=== PATIENT | male | born 1970 | race Caucasian/White ===

== ENCOUNTER 2022-07-09 08:39 | Day surgery (SDC) | payer OTHER, SELFPAY ==
[2022-07-09] VITALS (7 sets, daily range): BP systolic 100–155; BP diastolic 75–94; PULSE 88–100; RESP 16; TEMP 36.2–36.4; O2SAT 90–95; BMI 32.7
--- NOTE | 2022-07-09 08:59 | PCM.HP.STD ---
[facility] - General General Date of Admission: 07/09/22 Date of Service: 07/09/22 Chief Complaint: Screening colonoscopy HPI Narrative RHODA ROYAL, is a 51 M who presents today for screening colonoscopy. He has no past medical history of lower GI bleeding, constipation, diarrhea. He does not take any medicines for his bowels. He does have family history of colon cancer in his grandfather. No other GI past medical history is present. [facility] Medical History Alcohol use Diabetes Essential (primary) hypertension Former smoker Gastric reflux Hyperlipidemia Obesity Snoring Type 2 diabetes mellitus Wears glasses Home Medications amlodipine 10 mg tablet 10 mg PO DAILY 05/08/22 [History Last Taken Unknown] losartan 50 mg tablet 50 mg PO DAILY 05/08/22 [History Last Taken Unknown] metformin 1,000 mg tablet 1,000 mg PO BID 05/08/22 [History Last Taken Unknown] paroxetine HCl 20 mg tablet 20 mg PO DAILY 05/08/22 [History Last Taken Unknown] Allergy/AdvReac Type Severity Reaction Status Date / Time No Known Allergies Allergy Verified 07/07/22 11:36 Family History (Updated 05/08/22 @ 08:54 by Dedra Curry) Grandmother Colon cancer Mother Ovarian cancer Social History (Updated 05/08/22 @ 08:55 by Dedra Curry) household members: spouse current occupational status: employed current occupation: [employer] Smoking Status: Former smoker ROS Review of Systems ROS Unobtainable: other Constitutional Constitutional: Denies fatigue, fever(s), poor appetite, weight gain or weight loss ENT HEENT: Denies mouth lesions Cardiovascular Cardiovascular: Denies abdominal bloating, abdominal edema or abdominal pain Respiratory/Chest Respiratory/Chest: Denies change in mental status, change in phlegm color, chest congestion or chest tightness Gastrointestinal Gastrointestinal: Denies belching, bloating, change in bowel habits, change in stool character, chewing difficulty, coffee ground emesis, constipation, cramping, diarrhea, dyspepsia, dysphagia, early satiety, excessive flatus, fecal incontinence, heartburn, hematemesis, hematochezia, hemorrhoids, loose stools, melena, nausea, odynophagia, rectal bleeding, tenesmus, vomiting or weight changes Genitourinary Genitourinary: Denies abdominal discomfort, burning urination or itching Musculoskeletal Musculoskeletal: Reports as per HPI; Denies muscle weakness or myalgias Integumentary Integumentary: Denies jaundice Neurologic Neurologic: Denies lack of coordination or weakness Psychiatric Psychiatric: Denies confusion, depression, memory loss, mood swings, paranoia or suicidal ideation Endocrine Endocrinology: Denies systems reviewed and no addt'l complaints, except as documented Hematologic/Lymphatic Hematologic/Lymphatic: Denies anemia, easy bleeding, easy bruising or lymphadenopathy Allergic/Immunologic Allergic/Immunologic: Denies systems reviewed and no addt'l complaints, except as documented Physical Exam Const alert, oriented x3, no apparent distress, healthy appearing and well nourished General Appearance: cooperative, comfortable, well kempt and well developed Orientation / Consciousness: awake and oriented to person HEENT Head and Scalp: normocephalic and atraumatic Face and Sinus: normal facial exam Mouth: oral and palatal mucosa normal Eyes General Eye: normal appearance of both eyes Neck full ROM Lymph Lymphatic: no lymphadenopathy noted Chest inspection of chest normal Resp normal respiratory effort and no use of accessory muscles Cardio regular rate and regular rhythm GI normal to inspection, nondistended, normoactive bowel sounds, soft to palpation, non-tender, non-distended and no masses Auscultation: normoactive bowel sounds Palpation: soft Percussion: normal to percussion Rectal Exam: visual inspection normal and normal sphincter tone no CVA tenderness Back/Spine no CVA tenderness and normal ROM Extremity normal to inspection Peripheral Pulses: Yes pulses 2+ throughout Skin no rashes or lesions noted General Skin Exam: no breakdown, elasticity normal and turgor normal Neuro oriented x3 Motor Exam: strength 5/5 throughout Psych mental status grossly normal Appearance: grossly normal Attitude: calm Activity / Motor Behavior: appropriate eye contact Speech: normal speech Thought Process: normal thought process Thought Content: normal thought content Attention / Concentration: attention grossly intact Memory / Cognition: memory grossly intact Insight: insight good Judgement: judgement good Assessment & Plan Assessment/Plan (1) Encounter for screening for malignant neoplasm of colon: PLAN: He will undergo a screening colonoscopy. He was explained alternatives, risk, benefits including outstanding bleeding, infection, missed polyps, need for emergent surgery and . He will have an ASA of 2.
[2022-07-09] MEDS: Lactated Ringers 1,000 ML 15 ML IV (09:09)
[2022-07-09 09:35] LABS: Bedside Glucose 319 mg/dL (74-106)
--- NOTE | 2022-07-09 10:00 | COLBX_PTH ---
PATIENT: RHODA ROYAL LOC: EN U#:[id number] AGE/SX: 51/M ROOM: RE07/09/[address]: Dr. James Lopes DO : 1970 BED: DIS: 07/09/2022 SPEC #: [id number] RECD: 07/09/22 12:55 STATUS: TASNEEM REMargaret #: [id number] KEILY: 07/09/22 10:[address]: James Lopes DEPT: SURGICAL PATHOLOGY RECD BY: Jessica Baumann ENTERED: 07/09/22 13:30 SP TYPE: COLON BX OTHR DR: Dr. Javier Stephens, Tissues: Sigmoid colon biopsy Procedures: Surgery Specimen Level IV HEADER OPERATION: Colonoscopy ? open access (MAC), polypectomy PRE-OP DIAGNOSIS: Screening TISSUE SUBMITTED: Sigmoid polyps x2 MICROSCOPIC DIAGNOSIS Sigmoid polyps x2, polypectomy: Tubular adenoma x2. SJ:dinorah 07/10/2022 MICROSCOPIC DESCRIPTION Slides are reviewed. GROSS DESCRIPTION Received in fixative is one container labeled with the patient's name and designated sigmoid polyps. The specimen consists of two tinsley-pink polyps measuring 0.8 x 0.5 x 0.6 cm and 0.5 x 0.5 x 0.4. The larger polyp is bisected. The entire specimen is submitted in one cassette. / SJ:rg 07/09/2022 TC:1 CPT: 49282
--- NOTE | 2022-07-09 10:12 | OP.COLON_ITS ---
Patient Name: Eligio Ross Procedure Date: 07/09/2022 9:50 AM Date of : 1970 Age: 51 Procedure: Colonoscopy Indications: Screening for colorectal malignant neoplasm Providers: James Lopes DO Medicines: Monitored Anesthesia Care Patient Profile: This is a 51 year old male. Refer to note in patient chart for documentation of history and physical. Last Colonoscopy: none. The patient's first colonoscopy is today. Complications: No immediate complications. Procedure: Pre-Anesthesia Assessment: - Prior to the procedure, a History and Physical was performed, and patient medications and allergies were reviewed. The risks and benefits of the procedure and the sedation options and risks were discussed with the patient. All questions were answered and informed consent was obtained. Patient identification and proposed procedure were verified by the physician in the pre-procedure area. Mental Status Examination: alert and oriented. Respiratory Examination: clear to auscultation. CV Examination: normal. Prophylactic Antibiotics: The patient does not require prophylactic antibiotics. Prior Anticoagulants: The patient has taken no previous anticoagulant or antiplatelet agents. After reviewing the risks and benefits, the patient was deemed in satisfactory condition to undergo the procedure. The anesthesia plan was to use monitored anesthesia care (MAC). Immediately prior to administration of medications, the patient was re-assessed for adequacy to receive sedatives. The heart rate, respiratory rate, oxygen saturations, blood pressure, adequacy of pulmonary ventilation, and response to care were monitored throughout the procedure. The physical status of the patient was re-assessed after the procedure. After I obtained informed consent, the scope was passed under direct vision. Throughout the procedure, the patient's blood pressure, pulse, and oxygen saturations were monitored continuously. The colonoscope was introduced through the anus and advanced to the cecum, identified by appendiceal orifice and ileocecal valve. The colonoscopy was performed without difficulty. The patient tolerated the procedure well. The quality of the bowel preparation was adequate. Scope In: 9:55:04 AM Scope Withdrawal Time 0 hours 10 minutes 16 seconds Scope Out: 10:07:19 AM Total Procedure Duration Time 0 hours 12 minutes 15 seconds Findings: The perianal and digital rectal examinations were normal. Two sessile polyps were found in the sigmoid colon. The polyps were 1 to 2 mm in size. These polyps were removed with a hot snare. Resection and retrieval were complete. Verification of patient identification for the specimen was done. Estimated blood loss was minimal. A few small-mouthed diverticula were found in the recto-sigmoid colon and sigmoid colon. A [Size] polyp was found [Site]. [Pedicle]. Impression: - Two 1 to 2 mm polyps in the sigmoid colon, removed with a hot snare. Resected and retrieved. - Diverticulosis in the recto-sigmoid colon and in the sigmoid colon. - One polyp. Recommendation: - Repeat colonoscopy in 5 years for surveillance. - Continue present medications. Procedure Code(s): --- Professional --- 89663, Colonoscopy, flexible; with removal of tumor(s), polyp(s), or other lesion(s) by snare technique CPT copyright 2017 [employer]. All rights reserved. The codes documented in this report are preliminary and upon banquet pilot review may be revised to meet current compliance requirements. James Lopes DO 07/09/2022 10:11:52 AM This report has been signed electronically. Number of Addenda: 0 Note Initiated On: 07/09/2022 9:50 AM
--- NOTE | 2022-07-09 10:13 | OP.CCLET_ITS ---
07/09/2022 Javier Stephens [id number] [place] [address] Re : Colonoscopy procedure for Eligio Ross Dear Dr. Stephens This procedure was performed on June. My impressions and recommendations are as follows: Impressions : - Two 1 to 2 mm polyps in the sigmoid colon, removed with a hot snare. Resected and retrieved. - Diverticulosis in the recto-sigmoid colon and in the sigmoid colon. - One polyp. Recommendations : - Repeat colonoscopy in 5 years for surveillance. - Continue present medications. My findings are described in the full procedure note, which is enclosed. If I can be of further assistance, please feel free to contact me at . Sincerely, James Lopes, 07/09/2022 10:11:52 AM This report has been signed electronically.
== END 2022-07-09 11:15 | disposition home or self-care (01) ==
LOC: EN 08:43 → AC 08:44
PROVIDERS: PCP Family Medicine; Referring Provider Family Medicine; Visit Provider Internal Medicine Gastroenterology
PROC: 0DJD8ZZ Inspection of Lower Intestinal Tract, Via Natural or Artificial Opening Endoscopic (ICD-10-PCS; CPT 45378; principal; 2022-07-09 09:55)
DX: Z12.11 Encounter for screening for malignant neoplasm of colon (principal); E11.9 Type 2 diabetes mellitus without complications; D12.5 Benign neoplasm of sigmoid colon; K57.30 Diverticulosis of large intestine without perforation or abscess without bleeding; I10 Essential (primary) hypertension; E78.5 Hyperlipidemia, unspecified; E66.9 Obesity, unspecified; Z68.32 Body mass index [BMI] 32.0-32.9, adult; Z79.84 Long term (current) use of oral hypoglycemic drugs; Z79.899 Other long term (current) drug therapy; Z87.891 Personal history of nicotine dependence; Z80.0 Family history of malignant neoplasm of digestive organs
CPT/HCPCS: 45385; 82962; 88305; J7120; J2405